=== PATIENT | female | born 1990 | race African-American/Black ===

== ENCOUNTER 2018-05-15 05:55 | Emergency (ER) | payer OTHER ==
[~2018-05-15] VITALS: Ht 157.5 cm; Wt 104.3 kg
[~2018-05-15 05:55] MED LIST: AUGMENTIN 875875 MG PO; CYCLOBENZAPRINE10 M1 PO; IBUPROFEN600 M1 PO; MOTRIN 600 MG600 MG PO; ZOFRAN4 M2 SL
--- NOTE | 2018-05-15 06:21 | ED UPPER/LOWER EXTREMITY COMPL ---
History of Present Illness General Chief Complaint: Lower Extremity Problems Stated Complaint: RT CALF PAIN SEEN HERE 2DAYS AGO Source: patient Exam Limitations: no limitations Vital Signs & Intake/Output Vital Signs & Intake/Output Vital Signs Date Time Temp Pulse Resp B/P B/P Pulse O2 O2 Flow FiO2 Mean Ox Delivery Rate 05/15 0931 98.0 64 16 124/72 99 Room Air 05/15 0806 97.1 62 16 119/75 98 Room Air 05/15 0627 Room Air 05/15 0603 97.4 71 18 133/93 95 Room Air Allergies Coded Allergies: NO KNOWN ALLERGIES (01/02/14) Triage Note: PT TO TRIAGE WITH R CALF PAIN. SEEN HERE TUESDAY FOR R KNEE INJURY. RX MUSCLE RELAXERS AND IBUPROFEN. PT NOW EXPERIENCING R CALF PAIN. NO OBVIOUS SWELLING/REDNESS. MD LESLEY GERARDO PT IN TRIAGE. PLAN FOR /S. Triage Nurses Notes Reviewed? yes Onset: Gradual Duration: hour(s): Timing: recent history Severity: mild Pain/Injury Location: Right: Leg. Modifying Factors: Improves With: rest. Associated Symptoms: right calf pain : No Patient currently breastfeeds: No HPI: 27 yo woman presents with right calf pain which awoke her from sleep. She notes that she was here 2 days ago after a knee injury. She had a negative xray and was discharged. She notes that she has been using crutches. She last took ibuprofen last night. She notes that her right calf feels tight, perhaps swollen, without redness. No joint swelling. She is otherwise well. (Lesley GARDNER,Kishore Quinteros) Reconcile Medications No Known Home Medications (Aneta GARDNER,Royal Dai) Past History Travel History Traveled to [place] past 21 day No Medical History Any Pertinent Medical History? see below for history Neurological: NONE EENT: NONE Cardiovascular: NONE Respiratory: asthma Gastrointestinal: NONE Hepatic: NONE Renal: NONE Musculoskeletal: NONE Psychiatric: NONE Endocrine: NONE Blood Disorders: NONE Cancer(s): NONE DEPARTMENT MANAGER/Reproductive: NONE Tetanus Vaccine: 08/01/14 Surgical History Surgical History: non-contributory, N Psychosocial History What is your primary language Libyan Tobacco Use: Never used Family History Hx Contributory? No (Lesley GARDNER,Kishore Quinteros) Review of Systems Review of Systems Constitutional: Reports: no symptoms. EENTM: Reports: no symptoms. Respiratory: Reports: no symptoms. Cardiovascular: Reports: no symptoms. Gastrointestinal/Abdominal: Reports: no symptoms. Genitourinary: Reports: no symptoms. Musculoskeletal: Reports: no symptoms. Skin: Reports: no symptoms. Neurological/Psychological: Reports: no symptoms. Hematologic/Endocrine: Reports: no symptoms. Immunological: Reports: no symptoms. All Other Systems: Reviewed and Negative (Lesley GARDNER,Kishore Quinteros) Physical Exam Physical Exam General Appearance: well developed/nourished, mild distress Head: atraumatic Eyes: Bilateral: normal appearance. Ears, Nose, Throat: normal pharynx, normal ENT inspection, hearing grossly normal Neck: normal inspection, supple Cardiovascular/Respiratory: regular rate/rhythm Back: normal inspection Knee Right: normal ROM, no significant effusion. right calf with mild spasm without significant pretibial edema. no ivelisse's sign. Skin: intact, normal color, warm/dry Lymphatic: no anterior cervical shannan (Lesley GARDNER,Kishore Quinteros) Progress Differential Diagnosis: dvt vs muscle spasm vs other. Plan of Care: Orders Procedure Date/time Status US-UNILATERAL VENOUS DOPPLER 05/15 622 Active Diagnostic Imaging: Viewed by Me: Radiology Read. Discussed w/RAD: Radiology Read. Radiology Impression: PATIENT: CRISTIANE BUENROSTRO PRESENT AGE: 27 PATIENT ACCOUNT NO: [id number] : 92 LOCATION: [facility] ORDERING PHYSICIAN: Donte Griffith MD SERVICE DATE: 05/14/18 EXAM TYPE: RAD - XRY-KNEE COMPLETE RIGHT EXAMINATION: XR KNEE, RIGHT CLINICAL INFORMATION: Unable to bear weight. COMPARISON: None TECHNIQUE: 3 views of the right knee. FINDINGS: There is no evidence of acute fracture or traumatic dislocation involving the right knee. The knee joint is intact. There is a nbuta-en-ebziwnjq knee joint effusion. Regional soft tissues are within normal limits aside from trace prepatellar soft tissue swelling. IMPRESSION: No evidence of acute fracture or dislocation involving the right knee. DICTATED BY: Clay Arambula MD DATE/TIME DICTATED:05/14/18221 COW TRIMMER:JAGDEEP DATE/TIME TRANSCRIBED:05/14/18221 CONFIDENTIAL, DO NOT COPY WITHOUT APPROPRIATE AUTHORIZATION. <Electronically signed in Other Vendor System> SIGNED BY: Clay Arambula MD 05/14/18226 (Lesley GARDNER,Kishore Quinteros) Radiology Impression: PATIENT: CRISTIANE BUENROSTRO PRESENT AGE: 27 PATIENT ACCOUNT NO: [id number] : 92 LOCATION: [facility] ORDERING PHYSICIAN: Donte Griffith MD SERVICE DATE: 05/14/18 EXAM TYPE: RAD - XRY-KNEE COMPLETE RIGHT EXAMINATION: XR KNEE, RIGHT CLINICAL INFORMATION: Unable to bear weight. COMPARISON: None TECHNIQUE: 3 views of the right knee. FINDINGS: There is no evidence of acute fracture or traumatic dislocation involving the right knee. The knee joint is intact. There is a snzvz-dz-pdbkdgxo knee joint effusion. Regional soft tissues are within normal limits aside from trace prepatellar soft tissue swelling. IMPRESSION: No evidence of acute fracture or dislocation involving the right knee. DICTATED BY: Clay Arambula MD DATE/TIME DICTATED:05/14/18221 COW TRIMMER:JAGDEEP DATE/TIME TRANSCRIBED:05/14/18221 CONFIDENTIAL, DO NOT COPY WITHOUT APPROPRIATE AUTHORIZATION. <Electronically signed in Other Vendor System> SIGNED BY: Clay Arambula MD 05/14/18226, PATIENT: CRISTIANE BUENROSTRO PRESENT AGE: 27 PATIENT ACCOUNT NO: [id number] : 92 LOCATION: [facility] ORDERING PHYSICIAN: Kishore Sutton MD SERVICE DATE: EXAM TYPE: US - US-UNILATERAL VENOUS DOPPLER EXAMINATION: US TRIPLEX LOWER EXTREMITY, RIGHT CLINICAL INFORMATION: Right knee pain after injury. COMPARISON: None TECHNIQUE: Color-flow triplex imaging with spectral analysis and compression Doppler were performed on the lower extremity. FINDINGS: Respiratory variation, normal compression and augmented flow are noted throughout the lower extremity. The visualized common femoral vein, superficial femoral vein, profunda femoral vein, popliteal vein and midcalf peroneal and posterior tibial venous segments show no evidence of deep venous thrombosis. There is no Lieberman's cyst. A right knee joint effusion was noted. IMPRESSION: No evidence of deep venous thrombosis involving the right lower extremity. Right knee joint effusion. DICTATED BY: Tien Hayes MD DATE/TIME DICTATED:05/15/18907 COW TRIMMER:JAGDEEP DATE/TIME TRANSCRIBED:05/15/18907 CONFIDENTIAL, DO NOT COPY WITHOUT APPROPRIATE AUTHORIZATION. <Electronically signed in Other Vendor System> SIGNED BY: Tien Hayes MD 05/15/18 0915 Comments: 05/15/2018 7:17:53 AM patient signed out to me by Dr. Sutton at shift frame changer. 05/15/2018 10:25:21 AM I have updated Cristiane on her test results. Her knee is stable to my exam with no drawer sign or instability with varus or valgus stress. I feel she can be treated as an outpatient with a knee brace, anti- inflammatories and orthopedic follow-up. (Aneta GARDNER,Royal Dai) Departure Departure Disposition: HOME OR SELF CARE Condition: Stable Departure Forms: Customer Survey General Discharge Information Comments pt to be signed out to dr. cornell, 05/15/18, 7am, u/s pending. (Lesley GARDNER,Kishore Quinteros) Departure Clinical Impression Primary Impression: Knee effusion, right Secondary Impressions: Strain of knee and leg, right Qualifiers: Encounter type: initial encounter Qualified Code: S86.911A - Strain of unspecified muscle(s) and tendon(s) at lower leg level, right leg, initial encounter Referrals: Esha Salazar APRN (PCP/Family) Mukesh GARDNER,Toni Additional Instructions: Continue the prescribed medications from yesterday's visit. Use the knee brace as necessary to support the knee. Follow-up with the orthopedic surgeon listed if not improving over the next 2 weeks. Return immediately if any concerns or sudden worsening. Please notify your primary care physician of this emergency department visit and treatment plan. Please note that there might be incidental findings in your evaluation that are unrelated to the current emergency department visit. Please notify your primary care doctor about this emergency department visit in order to obtain and review all of the testing performed so that these incidental findings can be monitored as needed. If you had an x-ray performed, please understand that some fractures or other findings may not be seen on the initial set of x-rays. If your symptoms persist you might need a repeat set of x-rays to check for such a fracture. If you had a laceration evaluated, please understand that foreign bodies such as glass or wood may not be visible to the naked eye or on plain x-rays. If the wound becomes red, swollen, increasingly more painful or if there is any drainage from the wound, please have it reevaluated by a physician for the possibility of a retained foreign body. If you're unable to follow up as outlined in the discharge instructions please return to the emergency department. Thank you for choosing the [facility] Emergency Department for your care. It was a pleasure to serve you today. Royal Cornell M.D. [facility] Prescriptions: Current Visit Scripts No Known Home Medications (Aneta GARDNER,Royal Dai)
--- NOTE | 2018-05-15 09:15 | ULTRASOUND REPORT ---
EXAMINATION: US TRIPLEX LOWER EXTREMITY, RIGHT CLINICAL INFORMATION: Right knee pain after injury. COMPARISON: None TECHNIQUE: Color-flow triplex imaging with spectral analysis and compression Doppler were performed on the lower extremity. FINDINGS: Respiratory variation, normal compression and augmented flow are noted throughout the lower extremity. The visualized common femoral vein, superficial femoral vein, profunda femoral vein, popliteal vein and midcalf peroneal and posterior tibial venous segments show no evidence of deep venous thrombosis. There is no Lieberman's cyst. A right knee joint effusion was noted. IMPRESSION: No evidence of deep venous thrombosis involving the right lower extremity. Right knee joint effusion.
[2018-05-15 09:31] VITALS: BP 124/72
== END 2018-05-15 10:35 ==
LOC: ERH 05:55
DX: M25.461 Effusion, right knee (principal); M79.661 Pain in right lower leg; J45.909 Unspecified asthma, uncomplicated